=== PATIENT | female | born 1980 | race Hispanic/Latino ===

== ENCOUNTER 2018-04-07 13:15 | Emergency (ER) | payer BC, OTHER ==
[2018-04-07 13:15] VITALS: BMI 37.3
[2018-04-07 13:21] VITALS: RESP 20; TEMP 97.9; O2SAT 100
--- NOTE | 2018-04-07 13:56 | ED PDOC ---
HPI: Allergic Reaction Time Seen by Provider: 04/07/18 13:30 Chief Complaint (Nursing): Allergic Reaction Chief Complaint (Provider): Allergic Reaction History Per: Patient History/Exam Limitations: no limitations Onset/Duration Of Symptoms: Hrs (earlier today) Current Symptoms Are (Timing): Still Present Additional Complaint(s): 38 year old female presents to the ED for evaluation of a possible allergic reaction. She states she developed an itchy rash to her arms, face, and torso after eating oatmeal which she has never had before. Denies any other new exposures, throat swelling, shortness of breath, and chest pain. PMD: Myles March Past Medical History Reviewed: Historical Data, Nursing Documentation, Vital Signs Vital Signs: Last Vital Signs Temp 97.9 F 04/07/18 13:20 Pulse 98 H 04/07/18 13:20 Resp 20 04/07/18 13:20 BP 155/95 H 04/07/18 13:20 Pulse Ox 100 04/07/18 13:20 - Medical History PMH: HTN - Surgical History Surgical History: No Surg Hx - Family History Family History: States: Unknown Family Hx - Social History Current smoker - smoking cessation education provided: No Ex-Smoker (has not smoked in the last 12 months): Yes Alcohol: None Drugs: Denies - Allergies Allergies/Adverse Reactions: Allergies Allergy/AdvReac Type Severity Reaction Status Date / Time No Known Allergies Allergy Verified 02/12/15 00:13 Review of Systems ROS Statement: Except As Marked, All Systems Reviewed And Found Negative ENT: Negative for: Throat Swelling Cardiovascular: Negative for: Chest Pain Respiratory: Negative for: Shortness of Breath Skin: Positive for: Rash (itchy to face, arms, and torso) Physical Exam - Reviewed Nursing Documentation Reviewed: Yes Vital Signs Reviewed: Yes - Physical Exam Appears: Positive for: No Acute Distress Skin: Positive for: Rash (diffuse erythematous non-papular, non-vesicular, pruritic rash to bilateral arms, upper trunk, and face) Eye Exam: Positive for: Normal appearance ENT: Positive for: Normal ENT Inspection, Other (airway patent). Negative for: Tonsillar Swelling Neck: Positive for: Normal, Painless ROM Cardiovascular/Chest: Positive for: Regular Rate, Rhythm Respiratory: Positive for: Normal Breath Sounds. Negative for: Stridor, Respiratory Distress Extremity: Positive for: Normal ROM (all extremities) Neurologic/Psych: Positive for: Alert, Oriented (x3). Negative for: Motor/Sensory Deficits - ECG O2 Sat by Pulse Oximetry: 100 (RA) Pulse Ox Interpretation: Normal Disposition - Clinical Impression Clinical Impression: Allergic reaction - Patient ED Disposition Is Patient to be Admitted: No Doctor Will See Patient In The: Office Counseled Patient/Family Regarding: Diagnosis, Need For Followup, Rx Given - Disposition Referrals: Myles March MD [Staff Provider] - Disposition: Routine/Home Disposition Time: 14:59 Condition: STABLE Instructions: Food Allergy Forms: [employer] (Hebrew) Medical Decision Making Medical Decision Making: Time: 1350 Initial Impression: possible allergic reaction from new food exposure Initial Plan: --Decadron Inj 10ml INJ Pt rash has dissipated and pruritis has rectified to a minimal and manageable level Pt will be discharged with f/u to PMD Scribe Attestation: Documented by Meli Lopez, acting as a scribe for Kadeem Little PA-C. Provider Scribe Attestation: All medical record entries made by the Scribe were at my direction and personally dictated by me. I have reviewed the chart and agree that the record accurately reflects my personal performance of the history, physical exam, medical decision making, and the department course for this patient. I have also personally directed, reviewed, and agree with the discharge instructions and disposition.
[2018-04-07 15:04] VITALS: BP 120/75; PULSE 77
== END 2018-04-07 15:03 | disposition home or self-care (01) ==
LOC: H.ER 13:15
DX: T78.40XA Allergy, unspecified, initial encounter (principal); I10 Essential (primary) hypertension
CPT/HCPCS: 96372; 99283; J1100